=== PATIENT | male | born 1950 | race Caucasian/White ===

== ENCOUNTER 2020-06-09 18:32 | Inpatient (IN) | payer MEDICARE, OTHER ==
[~2020-06-09] VITALS: Ht 182.9 cm; Wt 112.9 kg
[2020-06-09] MEDS ORDERED: FURO20TA4 PO (19:28)
[2020-06-09] MEDS ORDERED: BISO5TAB20 PO (19:28)
[2020-06-09] MEDS ORDERED: AMIO200T5 PO (19:28)
[2020-06-09] MEDS ORDERED: EDOX60TA2 PO (19:28)
[2020-06-09] MEDS ORDERED: LORAZEPAM 0.5 MG TABLET PO ONE (20:45)
[2020-06-09] MEDS ORDERED: MAG HYDROX/AL HYDROX/SIMETH 30 ML LIQUID UDC PO PRN (23:00)
[2020-06-09] MEDS ORDERED: BLOOD SUGAR DIAGNOSTIC 1 EACH STRIP VI ONE (23:00)
[2020-06-09] MEDS ORDERED: MAGNESIUM HYDROXIDE 30 ML LIQUID UDC PO PRN (23:00)
[2020-06-09] MEDS ORDERED: TEMAZEPAM 7.5 MG CAPSULE PO PRN (23:00)
[2020-06-09] MEDS ORDERED: LORAZEPAM 0.5 MG TABLET PO PRN (23:00)
[2020-06-09] MEDS ORDERED: ACETAMINOPHEN 325 MG TABLET PO PRN (23:00)
[2020-06-09 23:15] VITALS: BP 143/71
[2020-06-10 07:30] VITALS: BP 167/73
[2020-06-10] MEDS: FUROSEMIDE 20 MG TABLET PO SCH (08:44)
[2020-06-10] MEDS: AMIODARONE HCL 200 MG TABLET PO SCH (08:52)
[2020-06-10] MEDS ORDERED: EDOXABAN TOSYLATE 60 MG PO SCH (09:00)
[2020-06-10] MEDS ORDERED: BISOPROLOL FUMARATE PO SCH (09:00)
[2020-06-10] MEDS: FLUOXETINE HCL 20 MG CAPSULE PO SCH (09:47)
[2020-06-10 15:39] VITALS: BP 169/68
[2020-06-10 20:00] VITALS: BP 161/74
[2020-06-10] MEDS: MIRTAZAPINE 15 MG TABLET PO SCH (20:12)
[2020-06-11 07:30] VITALS: BP 161/70
[2020-06-11] MEDS: AMIODARONE HCL 200 MG TABLET PO SCH (08:22)
[2020-06-11] MEDS: FUROSEMIDE 20 MG TABLET PO SCH (08:22)
[2020-06-11] MEDS: ATENOLOL 50 MG TABLET PO SCH (08:22)
[2020-06-11] MEDS: FLUOXETINE HCL 20 MG CAPSULE PO SCH (08:22)
[2020-06-11 15:19] LABS: CREATININE 1.3 mg/dL (0.6-1.3); POTASSIUM 3.5 mmol/L (3.5-5.1)
[2020-06-11 15:28] VITALS: BP 136/62
[2020-06-11] MEDS: APIXABAN 5 MG TABLET PO SCH (16:45)
[2020-06-11] MEDS: MIRTAZAPINE 15 MG TABLET PO SCH (20:07)
[2020-06-11 20:22] VITALS: BP 134/65
[2020-06-12 07:30] VITALS: BP 138/75
[2020-06-12] MEDS: ATENOLOL 50 MG TABLET PO SCH (08:02)
[2020-06-12] MEDS: FLUOXETINE HCL 20 MG CAPSULE PO SCH (08:02)
[2020-06-12] MEDS: FUROSEMIDE 20 MG TABLET PO SCH (08:03)
[2020-06-12] MEDS: AMIODARONE HCL 200 MG TABLET PO SCH (08:03)
[2020-06-12] MEDS: APIXABAN 5 MG TABLET PO SCH ×2 (08:05→16:52)
[2020-06-12 16:47] VITALS: BP 145/63
[2020-06-12 20:30] VITALS: BP 140/87
[2020-06-12] MEDS: MIRTAZAPINE 15 MG TABLET PO SCH (20:32)
[2020-06-13 07:30] VITALS: BP 139/64
[2020-06-13] MEDS ORDERED: ATENOLOL 50 MG TABLET PO SCH (09:00)
[2020-06-13] MEDS: ATENOLOL 25 MG TABLET PO SCH (09:00)
[2020-06-13] MEDS: FLUOXETINE HCL 20 MG CAPSULE PO SCH (09:41)
[2020-06-13] MEDS: AMIODARONE HCL 200 MG TABLET PO SCH (09:42)
[2020-06-13] MEDS: FUROSEMIDE 20 MG TABLET PO SCH (09:42)
[2020-06-13] MEDS: APIXABAN 5 MG TABLET PO SCH ×2 (09:43→16:57)
[2020-06-13 17:12] VITALS: BP 145/65
[2020-06-13 20:02] VITALS: BP 151/56
[2020-06-13] MEDS: MIRTAZAPINE 15 MG TABLET PO SCH (20:29)
[2020-06-14 07:30] VITALS: BP 143/67
[2020-06-14] MEDS: FLUOXETINE HCL 20 MG CAPSULE PO SCH (08:31)
[2020-06-14] MEDS: FUROSEMIDE 20 MG TABLET PO SCH (08:31)
[2020-06-14] MEDS: AMIODARONE HCL 200 MG TABLET PO SCH (08:32)
[2020-06-14] MEDS: ATENOLOL 25 MG TABLET PO SCH (08:33)
[2020-06-14] MEDS: APIXABAN 5 MG TABLET PO SCH (08:33)
== END 2020-06-14 12:00 | disposition home or self-care (01) | DRG 885 ==
LOC: ER 18:37 → GPS 22:51
PROVIDERS: ADMIT Psychiatry & Neurology Psychosomatic Medicine; ATTEND Internal Medicine
DX: F33.2 Major depressive disorder, recurrent severe without psychotic features (principal); R45.851 Suicidal ideations; D68.69 Other thrombophilia; I48.0 Paroxysmal atrial fibrillation; Z79.01 Long term (current) use of anticoagulants; Z20.822 Contact with and (suspected) exposure to COVID-19; N40.0 Benign prostatic hyperplasia without lower urinary tract symptoms; F41.0 Panic disorder [episodic paroxysmal anxiety]; Z73.6 Limitation of activities due to disability; I10 Essential (primary) hypertension; E66.9 Obesity, unspecified; Z68.33 Body mass index [BMI] 33.0-33.9, adult; R00.1 Bradycardia, unspecified; F29 Unspecified psychosis not due to a substance or known physiological condition; Z85.46 Personal history of malignant neoplasm of prostate; Z90.79 Acquired absence of other genital organ(s)
CPT/HCPCS: 36415; 71045; A4663